=== PATIENT | male | born 1940 | race Caucasian/White ===

== ENCOUNTER → 2023-11-05 08:59 | Outpatient (REF) | payer MEDICARE, BC, SELFPAY | LOC: HWRCS 08:59 | PROVIDERS: ATTENDING PHYSICIAN Nurse Practitioner; FAMILY PHYSICIAN Family Medicine | DX: R00.1 Bradycardia, unspecified (principal); I71.21 Aneurysm of the ascending aorta, without rupture; I10 Essential (primary) hypertension | CPT/HCPCS: 93306 ==